=== PATIENT | female | born 1940 | race Caucasian/White ===

== ENCOUNTER 2017-02-01 06:45 | Day surgery (SDC) | payer MEDICARE, BC ==
--- NOTE | ~2017-02-01 | EGD ---
EGD REPORT [facility] [address] [address] NAME: AMY SOTO : 40 STATUS : REG [facility]#: [id number] AGE: 76 ADM/REG DATE : 02/01/17 MR#: [id number] REPORT SERV DATE: 02/01/17 DICTATED BY: JORDY CUMMINGS DATE: 02/01/17 REPORT STATUS : Draft [facility]ANS[facility] BY: [facility] DATE: 02/01/17 [facility] Patient Name: Amy Soto Date of : 1940 Attending MD: JORDY CUMMINGS MD Procedure Date No Time: 02/01/2017 Procedure: Colonoscopy Indications: High risk colon cancer surveillance: Personal history of colonic polyps Referring MD: WILFRID AMAYA Medicines: Propofol per Anesthesia Complications: No immediate complications. Procedure: Pre-Anesthesia Assessment: - ASA Grade Assessment: III - A patient with severe systemic disease. After I obtained informed consent, the scope was passed under direct vision. Throughout the procedure, the patient's blood pressure, pulse, and oxygen saturations were monitored continuously. The PCF [id number] was introduced through the anus and advanced to the cecum, identified by appendiceal orifice and ileocecal valve. The ileocecal valve, appendiceal orifice and terminal ileum were photographed. The colonoscopy was performed without difficulty. The patient tolerated the procedure well. The quality of the bowel preparation was good. Findings: The perianal and digital rectal examinations were normal. A sessile polyp was found in the ascending colon. The polyp was 5 mm in size. The polyp was removed with a cold biopsy forceps. Resection and retrieval were complete. Multiple medium-mouthed diverticula were found in the recto-sigmoid colon, in the sigmoid colon, in the descending colon, at the splenic flexure, in the transverse colon, at the hepatic flexure and in the ascending colon. Internal hemorrhoids were found during retroflexion and were Grade I (internal hemorrhoids that do not prolapse). The rest of the colon was normal The previously seen mass on the ileocecal valve was not seen. It may have been a lipomatous ileocecal valve. Impression: - One 5 mm polyp in the ascending colon. Resected and retrieved. - Diverticulosis in the recto-sigmoid colon, in the sigmoid colon, in the descending colon, at the splenic EGD REPORT [place] [id number] [facility] [place]. [address] NAME: AMY SOTO : 40 STATUS : REG [facility]#: [id number] AGE: 76 ADM/REG DATE : 02/01/17 MR#: [id number] REPORT SERV DATE: 02/01/17 DICTATED BY: JORDY CUMMINGS DATE: 02/01/17 REPORT STATUS : Draft TRANSCRIBED BY: [employer] DATE: 02/01/17 flexure, in the transverse colon, at the hepatic flexure and in the ascending colon. - Internal hemorrhoids. Recommendation: - Discharge patient to home (ambulatory). - Return to my office in 3 weeks. Procedure Code(s): --- Professional --- 50317, Colonoscopy, flexible, proximal to splenic flexure; with biopsy, single or multiple Diagnosis Code(s): --- Professional --- D12.2, Benign neoplasm of ascending colon K64.0, First degree hemorrhoids K57.30, Diverticulosis of large intestine without perforation or abscess without bleeding Z86.010, Personal history of colonic polyps CPT copyright 2013 [employer]. All rights reserved. The codes documented in this report are preliminary and upon buggy loader review may be revised to meet current compliance requirements. Jordy Cummings MD JORDY CUMMINGS MD 02/01/2017 8:16 AM This report has been signed electronically. Number of Addenda: 0 Note Initiated On: 02/01/2017 7:44 AM Scope Withdrawal Time 0 hours 15 minutes 9 seconds [address] [address]
[~2017-02-01 06:45] MED LIST: ACET500CAP PO; ASAB PO; CAT1 PO; CAT2 PO; CILOSTAZOL50 MG PO; CO Q-10100 MG PO; COREG12 PO; COREG6 PO; CRESTOR10 PO; CRESTOR5 MG PO; CYANO1000T PO; EXFORGE HC4 PO; EXFORGE1 TA3 PO; FISH-EPA1000 MG PO; FORTAMET500 MG PO; IRON PO; LANTUS SC; LEVOTHYROXIN150 MCG PO; NOVOLOG SC; NOVOPEN SC; OCUVITE PO; PLAVIX PO; VICTOZA18 MG/3 ML SC; VITAMIN B-121000 MC1 SL; ZOCOR40 PO; ZOL50 PO
== END 2017-02-01 23:59 | disposition home or self-care (01) ==
LOC: DMU 06:45
PROVIDERS: Internal Medicine Gastroenterology
PROC: 0DBK8ZX Excision of Ascending Colon, Via Natural or Artificial Opening Endoscopic, Diagnostic (ICD-10-PCS; principal; 2017-02-01 08:30)
DX: K51.40 Inflammatory polyps of colon without complications (principal); K64.0 First degree hemorrhoids; K57.30 Diverticulosis of large intestine without perforation or abscess without bleeding; E11.9 Type 2 diabetes mellitus without complications; E78.00 Pure hypercholesterolemia, unspecified; K21.9 Gastro-esophageal reflux disease without esophagitis; D64.9 Anemia, unspecified; E89.0 Postprocedural hypothyroidism; I10 Essential (primary) hypertension; Z86.010 Personal history of colon polyps; Z79.899 Other long term (current) drug therapy; Z79.02 Long term (current) use of antithrombotics/antiplatelets; Z79.82 Long term (current) use of aspirin; Z79.4 Long term (current) use of insulin; Z98.890 Other specified postprocedural states
CPT/HCPCS: 82962; 88305